=== PATIENT | female | born 1940 | race African-American/Black ===

== ENCOUNTER 2017-10-01 10:55 | Observation (INO) | payer OTHER ==
[~2017-10-01] VITALS: Ht 162.6 cm; Wt 76.9 kg
[~2017-10-01 10:55] MED LIST: ADULT LOW DOSE81 M1 PO; ARTHROTEC 751 TABLET PO; ASPIR-LOW81 MG PO; Arthrotec 75 PO; BENICAR40 MG PO; CRESTOR20 MG PO; HYDROCHLOROTHIA50 MG PO; IMDUR30 MG PO; KLOR-CON 88 MEQ PO; MICROZIDE12.5 M1 PO; NEXIUM40 MG PO; PLAVIX75 MG PO; TOPROL XL50 MG PO
[2017-10-01 13:05] LABS: CHLORIDE 104 mEq/L (99-109); POTASSIUM 3.2 mEq/L (3.7-5.4); SODIUM 140 mEq/L (136-147)
[2017-10-01 13:07] LABS: GLUCOSE 106 mg/dL (70-99)
[2017-10-01 13:09] LABS: TROP-I INTERPRETATION NEGATIVE; TROPONIN-I < 0.01 ng/mL (0.0-0.30)
[2017-10-01 13:11] LABS: CREATININE 0.8 mg/dL (0.6-1.3); GFR ESTIMATE (CALCULATED) > 59 mL/min/
[2017-10-01 13:12] LABS: UREA NITROGEN (BUN) 16 mg/dL (9-23)
[2017-10-01 13:16] LABS: HEMATOCRIT 32.4 % (36.0-46.0); MCH 32.6 PG (29.0-34.0); MCV 96.1 FL (83-99); PLATELET COUNT 339 K/uL (156-360); RBC DIS.WIDTH-CV 13.7 % (11.8-14.6); RBC DIS.WIDTH-SD 47.4 % (39-53); RED BLOOD COUNT 3.37 M/uL (3.80-5.20)
[2017-10-01 14:36] LABS: APPEARANCE CLEAR ((CLEAR)); BILIRUBIN NEGATIVE; BLOOD NEGATIVE; COLOR YELLOW ((YELLOW)); GLUCOSE (STRIP) NEGATIVE; KETONES NEGATIVE; LEUKOCYTES MODERATE; NITRITE NEGATIVE; PROTEIN (STRIP) NEGATIVE; SPECIFIC GRAVITY 1.005 (1.000-1.030); UROBILINOGEN 0.2 MG/DL (0.2-1.0)
[2017-10-01 14:45] LABS: BACTERIA RARE /HPF; EPITHELIAL CELLS RARE /HPF; MUCUS TRACE /LPF; RED BLOOD CELLS 0-5 /HPF (0-5); UCUL ADDED? NO; WHITE BLOOD CELLS 0-5 /HPF (0-5)
[2017-10-01] MEDS ORDERED: CLONAZEPAM0.5 MG PO (15:12)
[2017-10-01] MEDS ORDERED: TRAMADOL HCL50 MG PO (15:12)
[2017-10-01] MEDS ORDERED: WOMEN'S DAILY1 EAC4 PO (15:13)
[2017-10-01] MEDS ORDERED: ZANTAC75 M1 PO (15:13)
[2017-10-01] MEDS ORDERED: CALCIUM 500 MG1 EACH PO (15:14)
[2017-10-01] MEDS ORDERED: IRON325 M1 PO (15:14)
[2017-10-01 17:20] VITALS: BP 140/62
[2017-10-01 18:19] LABS: TROP-I INTERPRETATION NEGATIVE; TROPONIN-I < 0.01 ng/mL (0.0-0.30)
[2017-10-01 20:00] VITALS: BP 133/63
[2017-10-02] VITALS: BP 128/56
[2017-10-02 00:50] LABS: TROP-I INTERPRETATION NEGATIVE; TROPONIN-I < 0.01 ng/mL (0.0-0.30)
[2017-10-02 05:41] VITALS: BP 100/49
[2017-10-02 06:43] LABS: HEMATOCRIT 26.8 % (36.0-46.0); MCH 38.5 PG (29.0-34.0); MCHC 37.3 G/DL (30.0-36.0); PLATELET COUNT 280 K/uL (156-360); RBC DIS.WIDTH-CV 17.2 % (11.8-14.6); WHITE BLOOD COUNT 8.8 K/uL (4.1-10.2)
[2017-10-02 06:45] LABS: MCV 103.1 FL (83-99)
[2017-10-02 07:01] LABS: CHLORIDE 107 MEQ/L (99-109); CREATININE 0.6 MG/DL (0.6-1.3); GFR ESTIMATE (CALCULATED) > 59 mL/min/; GLUCOSE 99 mg/dL (70-99); SODIUM 140 MEQ/L (136-147); UREA NITROGEN (BUN) 15 mg/dL (9-23)
[2017-10-02 07:31] VITALS: BP 113/67
[2017-10-02 12:04] VITALS: BP 121/61
== END 2017-10-02 14:00 | disposition home or self-care (01) ==
LOC: EME 10:55 → EDOF 14:37 → ENRESERV 14:38 → 5WEST 17:08
PROVIDERS: Emergency Medicine; Internal Medicine
DX: R20.0 Anesthesia of skin (principal); R20.2 Paresthesia of skin; Z86.73 Personal history of transient ischemic attack (TIA), and cerebral infarction without residual deficits; I10 Essential (primary) hypertension; Z87.11 Personal history of peptic ulcer disease; H53.8 Other visual disturbances; M79.602 Pain in left arm; M79.89 Other specified soft tissue disorders; E87.5 Hyperkalemia; E87.6 Hypokalemia; D72.829 Elevated white blood cell count, unspecified; I25.10 Atherosclerotic heart disease of native coronary artery without angina pectoris; E78.5 Hyperlipidemia, unspecified; Z90.710 Acquired absence of both cervix and uterus; Z82.49 Family history of ischemic heart disease and other diseases of the circulatory system; Z83.49 Family history of other endocrine, nutritional and metabolic diseases; Z80.0 Family history of malignant neoplasm of digestive organs; Z88.8 Allergy status to other drugs, medicaments and biological substances
CPT/HCPCS: 70450; 70551; 71020; 80048; 81003; 84484; 85027; 93005; 93971; 99281; 99284; G0378; J1650